=== PATIENT | female | born 1960 | race Asian ===

== ENCOUNTER 2019-10-27 12:03 | Emergency (ER) | payer BC, OTHER ==
[~2019-10-27] VITALS: Ht 165.1 cm; Wt 62.6 kg
[2019-10-27 11:57] VITALS: BP 157/83
[~2019-10-27 12:03] MED LIST: LEVOTHYROXINE75 MCG ORAL
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
--- NOTE | 2019-10-27 12:06 | NUR ---
ED Nurse Note: pt reports dizziness, dry blood around nose noted
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
--- NOTE | 2019-10-27 12:17 | NUR ---
ED Nurse Note: IV site established, patent and intact; pt blood specimen collected, sent to lab
[2019-10-27 13:00] LABS: ANION GAP 9 mmol/L (5-15); BLOOD UREA NITROGEN 17 mg/dL (7-18); CARBON DIOXIDE 26 MMOL/L (21-32); CHLORIDE 107 MMOL/L (98-107); CREATININE 0.8 MG/DL (0.55-1.30); SODIUM 142 MMOL/L (136-145)
[2019-10-27 13:04] LABS: ALANINE AMINOTRANSFERASE 44 U/L (12-78); ALBUMIN 3.9 G/DL (3.4-5.0); ALBUMIN/GLOBULIN RATIO 1.1 (1.0-2.7); ALKALINE PHOSPHATASE 78 U/L (46-116); ASPARTATE AMINO TRANSFERASE 26 U/L (15-37); BILIRUBIN,TOTAL 0.7 MG/DL (0.2-1.0)
[2019-10-27 13:08] LABS: BASOPHILS % (AUTO) 1.3 % (0.0-2.0); EOSINOPHILS % (AUTO) 0.7 % (0.0-3.0); HEMATOCRIT 41.4 % (37.0-47.0); HEMOGLOBIN 14.6 G/DL (12.0-16.0); LYMPHOCYTES % (AUTO) 25.7 % (20.0-45.0); MEAN CORPUSCULAR VOLUME 89 FL (80-99); MONOCYTES % (AUTO) 6.4 % (1.0-10.0); NEUTROPHILS % (AUTO) 65.9 % (45.0-75.0); PLATELET COUNT 233 K/UL (150-450); RED BLOOD COUNT 4.64 M/UL (4.20-5.40); RED CELL DISTRIBUTION WIDTH 11.7 % (11.6-14.8); WHITE BLOOD COUNT 6.4 K/UL (4.8-10.8)
[2019-10-27 13:10] LABS: INR 0.9 (0.9-1.1)
--- NOTE | 2019-10-27 13:19 | NUR ---
ED Nurse Note: pt returned From CT
[2019-10-27] MEDS ORDERED: Hydrogen Peroxide 473ml Bottle TOPIC ONE (13:30)
--- NOTE | 2019-10-27 13:38 | Diagnostic Imaging Report ---
Indication: Orbital and maxillofacial trauma and pain Technique: Continuous helical transaxial imaging of the orbits/maxillofacial structures obtained without intravenous contrast administration. Coronal 2-D reformats were also obtained. Study obtained in a Siemens sensation [address] Automatic Exposure Control was utilized. Total Dose length Product (DLP): 520.[address] Dose Index Volume (CTDIvol): 24 mGy Comparison: None Findings: There is no evidence of an acute fracture. Paranasal sinuses and mastoids are clear. Soft tissues are unremarkable. There is mild mucosal thickening within some of the paranasal sinuses. IMPRESSION: No acute fracture identified The CT scanner at [facility] is accredited by the [employer] and the scans are performed using dose optimization techniques as appropriate to a performed exam including Automatic Exposure control.
[2019-10-27] MEDS: Hydrogen Peroxide 473ml Bottle TOPIC ONE ×2 (13:40→13:42)
--- NOTE | 2019-10-27 13:40 | NUR ---
ED Nurse Note: per regand TO pull TXA
--- NOTE | 2019-10-27 13:41 | Diagnostic Imaging Report ---
Indication: Cervical trauma/pain. Technique: Continuous helical imaging of the cervical spine was obtained transaxially from the skull base to the upper thoracic spine. 2-D coronal and sagittal reformatted images were obtained. Automatic Exposure Control was utilized. Total Dose length Product (DLP): 93.[address] Dose Index Volume (CTDIvol): 3.7 mGy Comparison: None Findings: There is no acute fracture or malalignment identified. There is no soft tissue swelling identified. There is reversal cervical lordosis within the mid to upper part of the cervical spine. Moderate uncovertebral arthritis is demonstrated at multiple levels. Some of the intervertebral discs show narrowing and osteophytes. There is a right-sided pharyngeal diverticulum adjacent to the subglottic airway present. Impression: No acute injury Moderate spondylosis Right-sided pharyngeal diverticulum The CT scanner at [facility] is accredited by the [employer] and the scans are performed using dose optimization techniques as appropriate to a performed exam including Automatic Exposure control.
--- NOTE | 2019-10-27 13:42 | Diagnostic Imaging Report ---
Indication: Head trauma headache Technique: Contiguous 5 mm thick transaxial imaging of the head obtained in a Siemens Sensation [address] scanner. Soft tissue and bone windows generated. Automatic Exposure Control was utilized. Total Dose length Product (DLP): 1683.[address] Dose Index Volume (CTDIvol): 74 mGy Comparison: none Findings: The size and configuration of the cortical sulci, basal cisterns, and ventricles are within normal limits for age. There is no mass effect, midline shift, or edema identified. There is no evidence of acute hemorrhage or abnormal intra-axial or extra-axial fluid collections. The bones and soft tissues are unremarkable. Impression: No mass effect, edema or acute bleed. The CT scanner at [facility] is accredited by the [employer] and the scans are performed using dose optimization techniques as appropriate to a performed exam including Automatic Exposure control.
[2019-10-27] MEDS ORDERED: ACETAMINOPHEN500 M3 ORAL (14:05)
[2019-10-27 14:29] VITALS: BP 145/82
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
== END 2019-10-27 14:28 | disposition home or self-care (01) ==
LOC: EDBD 12:03 → EMR 13:07
DX: R42 Dizziness and giddiness (principal); R51 Headache; M47.812 Spondylosis without myelopathy or radiculopathy, cervical region; R68.84 Jaw pain; E03.9 Hypothyroidism, unspecified; M81.0 Age-related osteoporosis without current pathological fracture; V43.62XA Car passenger injured in collision with other type car in traffic accident, initial encounter; Y92.410 Unspecified street and highway as the place of occurrence of the external cause; Z88.0 Allergy status to penicillin; Z88.1 Allergy status to other antibiotic agents; Z88.2 Allergy status to sulfonamides
CPT/HCPCS: 36415; 70450; 70486; 72125; 80053; 85025; 85610; 85730; 96360; 99284; J7030